=== PATIENT | female | born 1960 | race Caucasian/White ===

== ENCOUNTER → 2025-02-25 11:56 | Outpatient (REF) | payer MEDICARE, OTHER, SELFPAY ==
[2025-02-25 13:02] LABS: C-Reactive Protein < 5.00 mg/L (0.0-10.00)
[2025-02-25 13:13] LABS: Erythrocyte Sed Rate 8 mm/hour (0-20)
== END ==
LOC: REG 11:56
PROVIDERS: ATTENDING PHYSICIAN Physician Assistant; FAMILY PHYSICIAN Family Medicine
DX: G45.3 Amaurosis fugax (principal)
CPT/HCPCS: 36415; 85652; 86140

== ENCOUNTER → 2025-03-16 14:06 | Outpatient (REF) | payer MEDICARE, OTHER, SELFPAY | LOC: RAD 14:06 | PROVIDERS: ATTENDING PHYSICIAN Physician Assistant | DX: R19.8 Other specified symptoms and signs involving the digestive system and abdomen (principal); G45.3 Amaurosis fugax | CPT/HCPCS: 76770; 93306; 93880 ==